=== PATIENT | male | born 1970 | race Two or more races ===

== ENCOUNTER 2018-07-10 09:16 | Emergency (ER) | payer OTHER, SELFPAY ==
[2018-07-10 09:17] VITALS: BP 126/91; PULSE 75; RESP 17; TEMP 36.5; O2SAT 98; BMI 26.9
--- NOTE | 2018-07-10 09:27 | RAD_ITS ---
STUDY: X-RAY CHEST REASON FOR EXAM: Male, 48 years old. 2 day history of chest pain. TECHNIQUE: Single AP portable view of the chest. COMPARISON: None. FINDINGS: EKG electrodes are seen. The lungs are clear and expanded. There is no demonstrated pleural abnormality. Normal size heart. Normal mediastinum and toby. Normal visualized pulmonary arteries. Normal visualized aortic arch and descending thoracic aorta. Normal visualized thoracic spine. Normal visualized ribs, clavicles, and shoulders. There is no demonstrated abnormality of the visualized soft tissue structures of the upper abdomen. RAD/Chest 1 View (Portable) IMPRESSION: Normal x-ray examination of the chest. Electronically Signed: Aroldo Scales, at 10:22 EDT , Service support ,
--- NOTE | 2018-07-10 09:29 | ED.DCSUM_ITS ---
- ER Visit Summary Date of Service: 07/10/18 Chief Complaint: Chest pain History of Present Illness: The patient is a 48 M who presents with chest pain. He has had this pain for 3 days. He describes the pain in the left parasternal area that radiates up into his jaw. Pushing on his chest makes it worse. Nothing makes it better. He denies any shortness of breath or diaphoresis. He felt near syncopal as well. No cough or lightheadedness. He denies ever having a stress test. He did have recent travel to [place] which included a 6-hour ride an automobile. He has no other DVT or PE risk factors. He has no cardiac risk factors. Physical Examination: Vital signs reviewed. HEENT exam unremarkable. Heart is regular rate and rhythm without murmurs. Lungs are clear to auscultation. Abdomen is soft and nontender. Extremities reveal no edema. Peripheral pulses are equal. Skin exam normal. Neurologic exam normal. Test Results: EKG is normal sinus rhythm with rate of 71. Nonspecific ST and T wave changes noted. Chest x-ray normal. Laboratory studies including troponin and d-dimer are normal Emergency Department Course and Treatment: The patient was given aspirin. His CRICKET score is 0. He has had continuous pain for 3 days. I do not feel that this is cardiac. His d-dimer is negative. I do not feel he needs a CTA of the chest. Patient will be discharged to continue NSAIDs for pain. He will call his doctor for follow-up and for an outpatient stress test. Treatment Plan: [] Disposition: Discharge Impression: Chest pain This note was generated with [employer] - [employer] dictation software. It may contain incorrect words, spelling, and punctuation that were not noted in review of the chart prior to signing ED Disposition - Plan for ED Patient: Referrals: Kian Arechiga MD [Primary Care Provider] -
[2018-07-10] MEDS: Aspirin 81 MG TAB.CHEW 324 MG PO (09:32)
[2018-07-10 09:43] LABS: Absolute Lymphocyte Count 4.91 X10^3/ul (0.83-4.51); Absolute Neutrophil Count 4.8 X10^3/uL (2.0-7.7); Basophil# 0.03 X10^3/uL; Basophil% 0.3 % (0-1); Eosinophil# 0.39 X10^3/uL; Eosinophils% 3.6 % (0-5); Hematocrit 47.3 % (40-54); Hemoglobin 16.6 g/dl (13.0-16.5); Lymphocyte # 4.91 X10^3/ul (4.0); Lymphocyte % 45.9 % (19-41); Mean Corp Hgb Conc 35.1 g/gl (32-36); Mean Corpuscular Hgb 28.2 pg (27.0-32.0); Mean Corpuscular Volume 80.3 fL (80-94); Mean Platelet Vol. 9.6 fl (6.2-12.0); Monocyte# 0.55 X10^3/uL; Monocyte% 5.1 % (0-10); Neutrophil # 4.79 X10^3/uL (2.7-7.7); Neutrophil % 44.8 % (47-70); Platelet Count 263 K/mm3 (150-450); RBC Distribution Width CV 14.6 % (11.6-14.6); RBC Distribution Width SD 42.4 fl (35.1-43.9); Red Blood Count 5.89 M/mm3 (4.6-6.2); White Blood Count 10.7 K/mm3 (4.4-11.0)
[2018-07-10 09:45] LABS: POSITIVE COUNT NO; POSITIVE DIFFERENTIAL NO; POSITIVE MORPHOLOGY NO
[2018-07-10 09:48] LABS: Anion Gap 8 (5-15); BUN 11 mg/dL (7-18); BUN/Creat Ratio 10.1 RATIO (10-20); Calcium,Total 9.1 mg/dL (8.5-10.1); Chloride 103 mmol/L (98-107); Creatinine, Serum 1.09 mg/dL (0.70-1.30); EST Glomerular Filtration Rate 76 mL/min (>60); Est Glom Filt Rate - Afr Amer 92 mL/min (>60); Estimated Creatinine Clearance 73.17 ml/min; Glucose 100 mg/dL (74-106); Potassium 3.6 mmol/L (3.5-5.1); Sodium Level 137 mmol/L (136-145)
[2018-07-10 09:50] LABS: D-Dimer Quantitative (DVT/PE) < 0.27 FEU/ug/m (0.27-0.49)
[2018-07-10 10:23] VITALS: BP 110/82; PULSE 67; RESP 18; O2SAT 100
--- NOTE | 2018-07-10 10:37 | ED.DEP ---
ED Disposition - Plan for ED Patient: Disposition: Home or Assisted Living Instructions: ED Chest Pain NonCardiac Referrals: Kian Arechiga MD [Primary Care Provider] -
[2018-07-10 10:40] VITALS: BP 113/76; PULSE 75; RESP 17; O2SAT 98
--- NOTE | 2018-07-10 10:40 | ED.RN ---
IV DC'ED, CATHETER INTACT, SMALL GAUZE DRESSING PLACED. DISCHARGE INSTRUCTIONS GIVEN TO AND REVIEWED WITH PATIENT, PATIENT DENIES QUESTIONS OR CONCERNS AND VOICES UNDERSTANDING OF DISCHARGE INSTRUCTIONS. PT AMBULATES OUT OF ROOM WITHOUT DIFFICULTY.
== END 2018-07-10 10:41 | disposition home or self-care (01) ==
PROVIDERS: Emergency Provider Emergency Medicine; Family Provider Internal Medicine; PCP Internal Medicine
DX: R07.9 Chest pain, unspecified (principal); R55 Syncope and collapse; Z79.82 Long term (current) use of aspirin
CPT/HCPCS: 71045; 80048; 84484; 85025; 85379; 93005; 99285; A4216

== ENCOUNTER 2019-02-14 09:20 | Emergency (ER) | payer OTHER, SELFPAY ==
[2019-02-14 09:22] VITALS: BP 135/89; PULSE 82; RESP 16; TEMP 36.3; O2SAT 97; BMI 26.7
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
[2019-02-14 10:53] VITALS: BP 118/75; PULSE 87; RESP 16; O2SAT 99
[2019-02-14] MEDS: Naproxen 500 MG Tablet PO (11:43)
[2019-02-14 11:49] VITALS: BP 110/77; PULSE 70; RESP 16; O2SAT 99
== END 2019-02-14 11:49 | disposition home or self-care (01) ==
PROVIDERS: Emergency Provider Emergency Medicine; Family Provider Internal Medicine; PCP Internal Medicine
DX: S83.421A Sprain of lateral collateral ligament of right knee, initial encounter (principal); S83.412A Sprain of medial collateral ligament of left knee, initial encounter; S90.32XA Contusion of left foot, initial encounter; V48.0XXA Car driver injured in noncollision transport accident in nontraffic accident, initial encounter; Y93.9 Activity, unspecified; Y92.9 Unspecified place or not applicable; Y99.9 Unspecified external cause status; Z87.891 Personal history of nicotine dependence
CPT/HCPCS: 73564; 73610; 73630; 73650; 99283

== ENCOUNTER 2022-11-14 19:40 | Emergency (ER) | payer BC, SELFPAY ==
[2022-11-14] VITALS (12 sets, daily range): BP systolic 126–132; BP diastolic 82–95; PULSE 75–84; RESP 15–22; TEMP 35.9; O2SAT 96–100; BMI 27.8
--- NOTE | 2022-11-14 19:57 | EKG12_ITS ---
Test Reason : CP Blood Pressure : / mmHG Vent. Rate : 075 BPM Atrial Rate : 075 BPM P-R Int : 144 ms QRS Dur : 092 ms QT Int : 380 ms P-R-T Axes : 067 060 037 degrees QTc Int : 424 ms Normal sinus rhythm Normal ECG Confirmed by FRANKY GRIFFITHS MD ([id number]), market editor STEPHIE RICHARD ([id number]) on 11/17/2022 1:15:43 PM Referred By: [facility] Confirmed By:FRANKY GRIFFITHS MD
--- NOTE | 2022-11-14 20:04 | RAD_ITS ---
INDICATION: chest pain EXAMINATION: Frontal view of the chest COMPARISON: Chest x-ray July 10, 2018. FINDINGS: Frontal view of the chest was obtained. The cardiac silhouette is not enlarged. No confluent airspace disease. No pneumothorax. No acute fracture identified. RAD/Chest 1 View (Portable) IMPRESSION: No acute pulmonary disease. Electronically Signed: Cameron Soliman MD at 20:25 EDT ,
[2022-11-14 20:11] LABS: Absolute Neutrophil Count 3.9 X10^3/uL (2.0-7.7); Basophil# 0.06 X10^3/uL; Basophil% 0.6 % (0-1); Eosinophil# 0.56 X10^3/uL; Hemoglobin 16.5 g/dL (13.0-16.5); Mean Corp Hgb Conc 33.7 g/dL (32-36); Mean Corpuscular Hgb 28.6 pg (27.0-32.0); Mean Corpuscular Volume 84.9 fL (80-94); Mean Platelet Vol. 9.3 fl (6.2-12.0); Monocyte# 0.62 X10^3/uL; Monocyte% 6.6 % (0-10); NRBC Flagged by Analyzer 0 % (0-5); Neutrophil # 3.87 X10^3/uL (2.7-7.7); Neutrophil % 41.6 % (47-70); Platelet Count 242 K/mm3 (150-450); RBC Distribution Width CV 14.2 % (11.6-14.6); RBC Distribution Width SD 43.5 fl (35.1-43.9); Red Blood Count 5.77 M/mm3 (4.6-6.2); White Blood Count 9.3 K/mm3 (4.4-11.0)
[2022-11-14 20:28] LABS: Anion Gap 6 (5-15); BUN 9 mg/dL (7-18); BUN/Creat Ratio 8.3 RATIO (10-20); Calcium,Total 8.5 mg/dL (8.5-10.1); Chloride 108 mmol/L (98-107); Creatinine, Serum 1.09 mg/dL (0.70-1.30); EST Glomerular Filtration Rate 75 mL/min (>60); Est Glom Filt Rate - Afr Amer 91 mL/min (>60); Estimated Creatinine Clearance 69.91 ml/min; Glucose 137 mg/dL (74-106); Potassium 3.8 mmol/L (3.5-5.1); Sodium Level 139 mmol/L (136-145); Troponin-I HS (w/2H Reflex) 6 pg/mL (3.0-78.0)
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
[2022-11-14 22:09] LABS: Reflex Troponin-HS? (from REC) Y
[2022-11-14 23:00] LABS: Troponin-I HS 4 pg/mL (3.0-78.0)
== END 2022-11-14 23:36 | disposition home or self-care (01) ==
PROVIDERS: Emergency Provider Emergency Medicine; PCP Internal Medicine; Visit Provider Emergency Medicine
DX: R07.9 Chest pain, unspecified (principal); R06.02 Shortness of breath; Z87.891 Personal history of nicotine dependence; Z79.82 Long term (current) use of aspirin
CPT/HCPCS: 71045; 80048; 84484; 85025; 93005; 99283; A4216